=== PATIENT | female | born 1990 | race Caucasian/White ===

== ENCOUNTER → 2017-01-30 | Outpatient (CLI) | payer OTHER ==
[2016-06-21 12:42] VITALS: BP 105/73
[~2017-01-30] MED LIST: CIPR500T94 PO; HYDR-971 PO; PREN1TAB46 PO
--- NOTE | 2017-01-30 15:31 | RAD ---
Cervical spine, 3 views, 01/30/2017: History: Neck pain, left arm pain No fracture or dislocation is identified. There is straightening of the normal cervical lordosis. The intervertebral disc spaces are well-maintained. The prevertebral soft tissues are unremarkable. IMPRESSION: 1. Straightening of the normal cervical lordosis. 2. No acute bony abnormality is detected.
== END | disposition home or self-care (01) ==
LOC: DXRADRC 15:04
PROVIDERS: ATTEND Nurse Practitioner Family
DX: M40.40 Postural lordosis, site unspecified (principal); M79.602 Pain in left arm
CPT/HCPCS: 72040

== ENCOUNTER 2018-09-16 00:54 | Emergency (ER) | payer OTHER ==
[~2018-09-16] VITALS: Ht 170.2 cm; Wt 63.5 kg
[~2018-09-16 00:54] MED LIST changes: +HYDR-3165 PO; -HYDR-971 PO
[2018-09-16 01:06] VITALS: BP 125/50
[2018-09-16] MEDS ORDERED: CLIN300C8 PO (01:21)
[2018-09-16] MEDS ORDERED: CEPH-264 PO (01:21)
[2018-09-16] MEDS ORDERED: BACI3.5O7 OP (01:21)
[2018-09-16] MEDS ORDERED: ERYTHROMYCIN 0.5% OPHTH OINTMENT 1GM TUBE. OD ONE (01:30)
[2018-09-16] MEDS ORDERED: CLINDAMYCIN HCL 150 MG CAPSULE PO ONE (01:30)
--- NOTE | 2018-09-16 01:35 | ED.ADGEN ---
Past History Past Medical History: No Pertinent History Past Surgical History: No Surgical History Smoking: Non-smoker Alcohol Use: Occasionally Drug Use: None Adult General Chief Complaint Chief Complaint ".. I woke up with this painful eye lid.." HPI HPI Patient is a 28 year old male who presents with above hx and complaints. Patient has had previous episodes of staph cellulitis. Patient has a small area of erythema and swelling on nasal canthus area of right eye. No true periorbital cellulitis. No adenopathy. Patient denies any vision changes. Patient denies any specific ill contacts or travel. Patient is currently . Patient states her last tetanus was 6 years ago. Patient denies any immunosuppression. Review of Systems Review of Systems Constitutional: Denies fever or chills [] Eyes: Denies change in visual acuity, redness, or eye pain []complains of right eye lid stye HENT: Denies nasal congestion or sore throat [] Respiratory: Denies cough or shortness of breath [] Cardiovascular: No additional information not addressed in HPI [] GI: Denies abdominal pain, nausea, vomiting, bloody stools or diarrhea [] : Denies dysuria or hematuria [] Musculoskeletal: Denies back pain or joint pain [] Integument: Denies rash or skin lesions [] Neurologic: Denies headache, focal weakness or sensory changes [] Endocrine: Denies polyuria or polydipsia [] All other systems were reviewed and found to be within normal limits, except as documented in this note. Family History Family History Noncontributory Current Medications Current Medications Current Medications Medications (Trade) Dose Ordered Sig/[facility] Start Time Stop Time Status Last Admin Dose Admin Clindamycin HCl (Cleocin) 300 mg 1X ONCE 09/16/18 01:30 09/16/18 01:30 DC 09/16/18 01:24 300 MG Erythromycin (Romycin) 0.25 inch 1X ONCE 09/16/18 01:30 09/16/18 01:30 DC 09/16/18 01:23 0.25 INCH Allergies Allergies Allergies Coded Allergies Type Severity Reaction Last Updated Verified sulfamethoxazole Allergy Intermediate rash 12/18/13 Yes trimethoprim Allergy Intermediate rash 12/18/13 Yes Physical Exam Physical Exam Constitutional: Well developed, well nourished, mild distress, non-toxic appearance. [] HENT: Normocephalic, atraumatic, bilateral external ears normal, oropharynx moist, no oral exudates, nose normal. [] Eyes: PERRLA, EOMI, conjunctiva normal, no discharge. [] Mild right eye lid canthus nasal side cellulitis. Neck: Normal range of motion, no tenderness, supple, no stridor. [] Cardiovascular:Heart rate regular rhythm, no murmur [] Lungs & Thorax: Bilateral breath sounds clear to auscultation [] Abdomen: Bowel sounds normal, soft, no tenderness, no masses, no pulsatile masses. [] Skin: Warm, dry, no erythema, no rash. [] Back: No tenderness, no CVA tenderness. [] Extremities: No tenderness, no cyanosis, no clubbing, ROM intact, no edema. [] Neurologic: Alert and oriented X 3, normal motor function, normal sensory function, no focal deficits noted. [] Psychologic: Affect anxious, judgement normal, mood normal. [] Current Patient Data Vital Signs Vital Signs Date Time Temp Pulse Resp B/P (MAP) Pulse Ox O2 Delivery O2 Flow Rate FiO2 09/16/18 01:06 98.8 79 18 98 Room Air EKG EKG [] Radiology/Procedures Radiology/Procedures [] Course & Med Decision Making Course & Med Decision Making Pertinent Labs and Imaging studies reviewed. (See chart for details) Prior very small amount of erythromycin ointment to right eye 4 times a day. Use moist heat packs frequent throughout the day. Take Keflex 500x3 times a day. May need to advance to clindamycin 303 times a day. If no improvement must see ophthalmology. Follow-up primary care. Return if any concerns. [] Final Impression Final Impression 1. Rt.Eyelid stye[]-cellulitis Dragon Disclaimer Dragon Disclaimer This electronic medical record was generated, in whole or in part, using a voice recognition dictation system. Dragon Disclaimer This chart was dictated in whole or in part using Voice Recognition software in a busy, high-work load, and often noisy Emergency Department environment. It may contain unintended and wholly unrecognized errors or omissions. Discharge Summary Visit Information Final Diagnosis Problems Medical Problems: (1) Cellulitis Status: Acute (2) Sty Status: Acute Brief Hospital Course Allergies Allergies Coded Allergies Type Severity Reaction Last Updated Verified sulfamethoxazole Allergy Intermediate rash 12/18/13 Yes trimethoprim Allergy Intermediate rash 12/18/13 Yes Vital Signs Vital Signs Date Time Temp Pulse Resp B/P (MAP) Pulse Ox O2 Delivery O2 Flow Rate FiO2 09/16/18 01:06 98.8 79 18 98 Room Air Brief Hospital Course Ms. John is a 28 old female who presented with Rt eye lid style. Discharge Information Condition at Discharge: Improved Disposition/Orders: D/C to Home Dischare Medications Current Medications Erythromycin (Romycin) 0.25 inch 1X ONCE OD Last administered on 09/16/18at 01: 23; Admin Dose 0.25 INCH; Start 09/16/18 at 01:30; Stop 09/16/18 at 01:30; Status DC Clindamycin HCl (Cleocin) 300 mg 1X ONCE PO Last administered on 09/16/18at 01: 24; Admin Dose 300 MG; Start 09/16/18 at 01:30; Stop 09/16/18 at 01:30; Status DC Active Scripts Active Polycin Eye Ointment (Bacitracin/Polymyxin B Sulfate) 3.5 Gm Oint...g. 3.5 Gm OP QID 10 Days Clindamycin Hcl 300 Mg Capsule 300 Mg PO TID 10 Days Keflex (Cephalexin) 500 Mg Capsule 500 Mg PO TID 10 Days Franklin 5-325 Tablet (Hydrocodone Bit/Acetaminophen) 1 Each Tablet 1-2 Tab PO Q4- 6HRS Cipro (Ciprofloxacin Hcl) 500 Mg Tablet 1 Tab PO BID Reported One Tablet ( Vit #108/Iron/Fa) 1 Each Tablet 1 Each PO DAILY CHESTER MELENDEZ MD Sep 16, 2018 01:35
== END 2018-09-16 01:27 | disposition home or self-care (01) ==
LOC: ER 00:54
DX: O26.899 Other specified pregnancy related conditions, unspecified trimester (principal); H00.033 Abscess of eyelid right eye, unspecified eyelid; H00.013 Hordeolum externum right eye, unspecified eyelid; Z3A.00 Weeks of gestation of pregnancy not specified; Z88.1 Allergy status to other antibiotic agents; Z88.2 Allergy status to sulfonamides
CPT/HCPCS: 99283

== ENCOUNTER 2019-04-28 20:37 | Emergency (ER) | payer OTHER ==
[~2019-04-28] VITALS: Ht 170.2 cm; Wt 62.1 kg
[~2019-04-28 20:37] MED LIST changes: +BACI3.5O7 OP; +CEPH-264 PO; +CLIN300C8 PO; -PREN1TAB46 PO; +PRENATAL ONE T1 EACH PO
[2019-04-28] MEDS ORDERED: IV DEXTROSE 5% - 0.9 % NACL 1,000 ML IV ONE (21:00)
[2019-04-28 21:13] LABS: BASO # 0.1 x10^3/uL (0.0-0.2); BASO % 1 % (0-3); EOS % 0 % (0-3); HEMATOCRIT 39.8 % (36.0-47.0); HEMOGLOBIN 13.5 g/dL (12.0-15.5); LYMPH % 22 % (24-48); MEAN CORPUSCULAR HEMOGLOBIN 31 pg (25-35); MEAN CORPUSCULAR HGB CONC 34 g/dL (31-37); MEAN CORPUSCULAR VOLUME 90 fL (79-100); MONO # 0.6 x10^3/uL (0.0-1.1); MONO % 7 % (0-9); NEUT # 6.2 x10^3uL (1.8-7.7); NEUT % 70 % (31-73); PLATELET COUNT 348 x10^3/uL (140-400); RED BLOOD COUNT 4.42 x10^6/uL (3.50-5.40); RED CELL DISTRIBUTION WIDTH 12.4 % (11.5-14.5); WHITE BLOOD COUNT 8.9 x10^3/uL (4.0-11.0)
--- NOTE | 2019-04-28 21:17 | PHYS DOC ---
Past History Past Medical History: No Pertinent History Past Surgical History: No Surgical History Smoking: Non-smoker Alcohol Use: None Drug Use: None Adult General Chief Complaint Chief Complaint: VOMITING IN HPI HPI Patient is a 28-year-old female with nausea and vomiting. This is been ongoing since finding out that she was . She is approximately 10 weeks . This happened with her previous pregnancies as well. She was seen by her POST SPLITTER during this past week, had an IV inserted and was given IV fluids and antiemetics. She took the IV catheter out 2 days ago due to discomfort. She denies any blood in the emesis. She reports decreased bowel movements but is st ill passing flatus. No previous surgical history. Any oral intake triggers nausea and vomiting. She has not started vitamins this .[] Review of Systems Review of Systems Constitutional: Denies fever or chills [] Eyes: Denies change in visual acuity, redness, or eye pain [] HENT: Denies nasal congestion or sore throat [] Respiratory: Denies cough or shortness of breath [] Cardiovascular: No chest pain or palpitations[] GI: See history of present illness[] : Denies dysuria or hematuria [] Musculoskeletal: Denies back pain or joint pain [] Integument: Denies rash or skin lesions [] Neurologic: Denies headache, focal weakness or sensory changes [] Endocrine: Denies polyuria or polydipsia [] All other systems were reviewed and found to be within normal limits, except as documented in this note. Current Medications Current Medications Current Medications Medications (Trade) Dose Ordered Sig/Natalie Start Time Stop Time Status Last Admin Dose Admin Dextrose/Sodium Chloride 1,000 ml @ 0 mls/hr 1X ONCE 04/28/19 21:00 04/28/19 21:01 UNV Ondansetron HCl (Zofran) 8 mg 1X ONCE 04/28/19 21:00 04/28/19 21:01 UNV Allergies Allergies Allergies Coded Allergies Type Severity Reaction Last Updated Verified sulfamethoxazole Allergy Intermediate rash 12/18/13 Yes trimethoprim Allergy Intermediate rash 12/18/13 Yes Physical Exam Physical Exam Constitutional: Well developed, well nourished, no acute distress, non-toxic appearance. [] HENT: Normocephalic, atraumatic, bilateral external ears normal, oropharynx moist, no oral exudates, nose normal. [] Eyes: PERRLA, EOMI, conjunctiva normal, no discharge. [] Neck: Normal range of motion, no tenderness, supple, no stridor. [] Cardiovascular:Heart rate is tachycardic with a regular rhythm, no murmur [] Lungs & Thorax: Bilateral breath sounds clear to auscultation [] Abdomen: Bowel sounds normal, soft, no tenderness, no masses, no pulsatile masses. [] Skin: Warm, dry, no erythema, no rash. [] Back: No tenderness, no CVA tenderness. [] Extremities: No tenderness, no cyanosis, no clubbing, ROM intact, no edema. [] Neurologic: Alert and oriented X 3, normal motor function, normal sensory function, no focal deficits noted. [] Psychologic: Affect normal, judgement normal, mood normal. [] Current Patient Data Vital Signs Vital Signs Date Time Temp Pulse Resp B/P (MAP) Pulse Ox O2 Delivery O2 Flow Rate FiO2 04/28/19 20:39 99.2 104 20 Room Air EKG EKG [] Radiology/Procedures Radiology/Procedures Bedside ultrasound was performed that showed heart motion in the 160s to 180s.[] Course & Med Decision Making Course & Med Decision Making Pertinent Labs and Imaging studies reviewed. (See chart for details) ED course: Patient arrived, was placed in bed, and tolerated exam well. She was given IV fluids and antiemetics. After this she was able to tolerate oral intake. Heart rate improved from over 100. Findings were discussed with the patient who voiced understanding. All questions were answered. She was discharged in improved condition. Medical decision making: There is no evidence of a significant electrolyte abnormality. Patient's ketones were present, this was addressed with IV D5 normal saline along with oral intake. She was given multivitamin since Derek's original case series included a patient with hyperemesis gravidarum. No evidence of a urinary tract infection. No evidence of an obstruction. No evidence of oral intake intolerance.[] Dragon Disclaimer Dragon Disclaimer This electronic medical record was generated, in whole or in part, using a voice recognition dictation system. Departure Departure: Impression: Primary Impression: Nausea and vomiting Additional Impression: Disposition: HOME, SELF-CARE Condition: IMPROVED Referrals: BYRON LENTZ APRN (PCP) Follow-up in 2 days Patient Instructions: Diet - Hyperemesis Gravidarum, Hyperemesis Gravidarum Additional Instructions: Follow-up with your regular doctor in 2 days.Drink plenty of fluids, frequent small sips. No fatty foods, no milk, and no pepper for the next 48 hours. For the next 48 hours eat a diet rich in carbohydrates with foods such as bananas, rice, applesauce, and toast. Since the medicines you have been prescribed do not seem to be working for you for her nausea, try the following strategies either individually, or together the next time you feel nauseated. Sniff the scent of rubbing alcohol from an alcohol packet try drinking 1/4 tsp of don dissolved in water or apple juice allow a tsp of sugar to dissolve under your tongue. Return to the ER if unable to tolerate liquids, blood in your stool or emesis, or any other concerns. Problem Qualifiers Primary Impression: Nausea and vomiting Vomiting type: unspecified Vomiting Intractability: non-intractable Qualified Codes: R11.2 - Nausea with vomiting, unspecified Additional Impression: Weeks of gestation: 10 weeks Qualified Codes: Z3A.10 - 10 weeks gestation of STEVIE EVANS DO Apr 28, 2019 21:17
[2019-04-28 21:18] LABS: BACTERIA,URINE FEW /HPF (0-FEW); BILIRUBIN,URINE NEG (NEG); CLARITY,URINE HAZY; COLOR,URINE YELLOW; GLUCOSE,URINE NEG (NEG); NITRITE,URINE NEG (NEG); SQUAMOUS EPITHELIAL CELL,UR OCC /LPF; UROBILINOGEN,URINE 0.2 mg/dL (0.2 mg/dL)
[2019-04-28 21:25] LABS: ALBUMIN 4.2 g/dL (3.4-5.0); ALBUMIN/GLOBULIN RATIO 1.3 (1.0-1.7); CALCIUM 9.4 mg/dL (8.5-10.1); CREATININE 0.6 mg/dL (0.6-1.0); POTASSIUM 3.4 mmol/L (3.5-5.1); TOTAL BILIRUBIN 0.6 mg/dL (0.2-1.0); TOTAL PROTEIN 7.5 g/dL (6.4-8.2)
[2019-04-28] MEDS ORDERED: ONDANSETRON PF 4 MG/2 ML VIAL. IV ONE (21:30)
[2019-04-28] MEDS ORDERED: FOLIC ACID 5 MG/ML SYRINGE for ER IV ONE (21:38)
[2019-04-28] MEDS ORDERED: THIAMINE 200 MG/2 ML VIAL. IV ONE (21:38)
[2019-04-28] MEDS ORDERED: MVI, ADULT NO.4 WITH VIT K 10 ML, FOLIC ACID SYRINGE for ER 1 MG, THIAMINE INJ 100 MG i... IV ONE ×4 (22:00)
[2019-04-28 23:26] VITALS: BP 104/67
== END 2019-04-28 23:29 | disposition home or self-care (01) ==
LOC: ER 20:37
DX: O21.9 Vomiting of pregnancy, unspecified (principal); Z3A.10 10 weeks gestation of pregnancy; Z88.1 Allergy status to other antibiotic agents; Z88.2 Allergy status to sulfonamides
CPT/HCPCS: 36415; 80053; 81001; 83735; 85025; 96361; 96365; 96375; 99285; J2405; J7042; J7120; 99284-25

== ENCOUNTER → 2019-07-01 | Outpatient (CLI) | payer OTHER ==
--- NOTE | 2019-07-01 12:31 | RAD ---
EXAM: Obstetrics sonogram. HISTORY: Pelvic pain. TECHNIQUE: Sonographic imaging of a gravid uterus was performed. COMPARISON: None. FINDINGS: There is a single intrauterine fetus in cephalic presentation with a heart rate of 150 bpm. The cervix is closed and measures 6.7 cm in length. There is a four-chamber heart. The stomach and brain are unremarkable. The remainder of the anatomy is not formally assessed. There is a posterior placenta without evidence of placenta previa. The anatomic fluid index is normal at 13.7 cm. The biparietal diameter is 4.3 cm, corresponding with 19 weeks and 1 day. The head circumference is 16.2 cm, corresponding with 19 weeks and 0 days. The abdominal circumference is 14.1 cm, corresponding with 19 weeks and 3 days. The femoral length is 2.7 cm, corresponding with 18 weeks and 2 days. The estimated gestational age patient combined ultrasound measurements is 19 weeks and 0 days. The estimated weight is 266 g. The estimated due date is 11/25/2019. IMPRESSION: 1. Single intrauterine fetus with an estimated gestational age based on ultrasound measurements of 19 weeks and 0 days and normal heart rate of 150 bpm. 2. No acute finding. Note is made that a formal anatomy survey was not performed at the time of this stat examination. Electronically signed by: Velvet Pizano MD (07/01/2019 12:28 PM) [place] [id number]
== END | disposition home or self-care (01) ==
LOC: US 10:47
PROVIDERS: ATTEND Registered Nurse
DX: Z33.1 Pregnant state, incidental (principal); R35.0 Frequency of micturition; R10.2 Pelvic and perineal pain; Z3A.19 19 weeks gestation of pregnancy
CPT/HCPCS: 76805

== ENCOUNTER → 2021-01-15 | Outpatient (CLI) | payer OTHER ==
[~2021-01-15] MED LIST changes: -CLIN300C8 PO; +CLIN300C9 PO
--- NOTE | 2021-01-15 10:03 | RAD ---
EXAM: Pelvic sonogram; renal sonogram. HISTORY: Left lower quadrant pain. TECHNIQUE: Sonographic imaging of the pelvis and kidneys was performed. COMPARISON: None. FINDINGS: The uterus measures 9.7 x 5.6 x 4.4 cm. The endometrial stripe measures 5 mm in thickness. The ovaries are normal in size and demonstrate normal blood flow. There are small bilateral ovarian a ntral follicles. There is no pelvic free fluid. The kidneys are normal in size. No solid or cystic renal lesion is seen. There is no hydronephrosis. The aorta is noted in caliber. The inferior vena cava is patent. The ureteral jets are both seen. The prevoid bladder volume is 170 cc. There is incidental mild spinal megaly measuring 13.4 cm. IMPRESSION: 1. No acute pelvic or renal finding. 2. Incidental mild splenomegaly. Electronically signed by: Velvet Pizano MD (01/15/2021 10:00 AM) [id number]
== END ==
LOC: US 09:01
PROVIDERS: ATTEND Obstetrics & Gynecology
DX: R10.32 Left lower quadrant pain (principal); R10.9 Unspecified abdominal pain
CPT/HCPCS: 76770; 76830; 76856

== ENCOUNTER → 2021-02-04 | Outpatient (CLI) | payer OTHER ==
[~2021-02-04] MED LIST changes: +IOHEXOL 240 MG/ML 50ML VIAL. ONE; +IOHEXOL 240 MG/ML 50ML VIAL. PO ONE; +IOHEXOL 300 MG/ML 75 ML VIAL. IV ONE
--- NOTE | 2021-02-04 09:19 | RAD ---
EXAM: Abdomen and pelvis CT with intravenous contrast. HISTORY: Diffuse pain. TECHNIQUE: Computed tomographic images of the abdomen and pelvis were obtained following the administ ration of intravenous contrast. Multiplanar reformatting was performed. *One or more of the following individualized dose reduction techniques were utilized for this examina tion: 1. Automated exposure control. 2. Adjustment of the mA and/or kV according to patient size. 3. Use of iterative reconstruction technique. COMPARISON: None. FINDINGS: Evaluation of the lower thorax is unremarkable. There is a tiny cyst within the superior le ft hepatic lobe. No suspicious hepatic lesion is seen. The gallbladder, pancreas, stomach, spleen, ad renal glands and kidneys are unremarkable. There is no appendicitis. There is no bowel obstruction. T here is no abnormal bowel wall thickening. The bladder is unremarkable. There is a 1.3 cm peripheral enhancing left ovarian follicle/follicular cyst. This likely an involuting. No uterine mass is seen. The aorta is normal in caliber. There is no lymphadenopathy. There is no suspicious osseous lesion. IMPRESSION: 1. No acute abdominal finding. 2. 1.3 cm physiologic involuting left ovarian follicle/follicular cyst. 3. Tiny hepatic cyst. Electronically signed by: Velvet Pizano MD (02/04/2021 9:17 AM) [id number]
== END ==
LOC: CT 08:05
PROVIDERS: ATTEND Internal Medicine Gastroenterology
DX: K76.89 Other specified diseases of liver (principal); N83.02 Follicular cyst of left ovary
CPT/HCPCS: 74177; Q9967

== ENCOUNTER 2021-09-03 08:25 | Emergency (ER) | payer OTHER ==
[~2021-09-03] VITALS: Ht 170.2 cm; Wt 63.6 kg
[~2021-09-03 08:25] MED LIST changes: +CLIN-95 PO; -CLIN300C9 PO; -IOHEXOL 240 MG/ML 50ML VIAL. ONE; -IOHEXOL 240 MG/ML 50ML VIAL. PO ONE; -IOHEXOL 300 MG/ML 75 ML VIAL. IV ONE
[2021-09-03 08:31] VITALS: BP 122/74
--- NOTE | 2021-09-03 08:45 | PHYS DOC ---
Past History Past Medical History: No Pertinent History Past Surgical History: No Surgical History Smoking: Non-smoker Alcohol Use: None Drug Use: None Adult General Chief Complaint Chief Complaint: SORE THROAT HPI HPI Patient is a 31-year-old female presenting with son for URI symptoms. 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 She reports last known interaction with any of these individuals was 3 days ago. She states that 5 days ago she started developing upper respiratory symptoms that include nasal congestion, rhinorrhea and a dry nonproductive cough prompting her to come in today for evaluation. She is unvaccinated against COVID-19 Review of Systems Review of Systems Fourteen body systems of review of systems have been reviewed. See HPI for pertinent positives and negative responses, other valdez all other systems are negative, non-pertinent or non-contributory Allergies Allergies Allergies Coded Allergies Type Severity Reaction Last Updated Verified sulfamethoxazole Allergy Intermediate rash 12/18/13 Yes trimethoprim Allergy Intermediate rash 12/18/13 Yes Physical Exam Physical Exam General: Appears well, non toxic, and comfortable Skin: Warm, dry. Normal for ethnicity. HEENT: Atraumatic. PERRLA. Rhinorrhea and congestion. Nasal turbinates boggy b/l. Moist mucous membranes. Uvula midline. Maintaining secretions. No phonation changes. Neck: Trachea midline. Normal ROM. No stridor. Respiratory: Normal WOB. CTAB w/o w/r/r. No tachypnea. Cardiovascular: Regular rate and rhythm. Normal peripheral perfusion. Abdomen: Soft. Non tender. No distension. Back: Normal ROM. Musculoskeletal: No swelling or deformity. Neuro: Alert and oriented x 4. MAEE. Lymph: No cervical LAD. Psych: Normal affect and mood. Current Patient Data Vital Signs Vital Signs Date Time Temp Pulse Resp B/P (MAP) Pulse Ox O2 Delivery O2 Flow Rate FiO2 09/03/21 08:31 98.3 95 18 122/74 (90) 99 Room Air Vital Signs Date Time Temp Pulse Resp B/P (MAP) Pulse Ox O2 Delivery O2 Flow Rate FiO2 09/03/21 08:31 98.3 95 18 122/74 (90) 99 Room Air EKG EKG [] Radiology/Procedures Radiology/Procedures [] Heart Score C/O Chest Pain: No Risk Factors: Risk Factors: DM, Current or recent (<one month) smoker, HTN, HLP, family history of CAD, obesity. Risk Scores: Risk Factors: DM, Current or recent (<one month) smoker, HTN, HLP, family history of CAD, obesity. Course & Med Decision Making Course & Med Decision Making ABCs unremarkable HPI physical exam consistent with likely self-limiting viral syndrome, cannot exclude COVID-19 an individual who is unvaccinated with positive contact. PCR test pending with supportive care and self quarantine precautions discussed Warren Disclaimer Dragon Disclaimer This electronic medical record was generated, in whole or in part, using a voice recognition dictation system. Departure Departure: Impression: Primary Impression: Viral syndrome Additional Impression: Person under investigation for COVID-19 Disposition: HOME / SELF CARE / HOMELESS Condition: STABLE Referrals: ALEXANDRE BEE MD (PCP) Additional Instructions: You were seen for fatigue, runny nose, body aches, and possible infection with COVID-19. Your physical exam was reassuring. We tested you for COVID-19 but this test does not come back for 1 to 2 days. In the meantime you need to quarantine yourself at home away from all other individuals, especially those who are elderly or have any other chronic health issues or an immunocompromised status. You should return to the ED if you develop worsening cough, shortness of breath, chest pain, or any other new or concerning symptoms. Alternate Tylenol and ibuprofen as needed for body aches and pain. If your test does come back positive you need to quarantine yourself for 10 days until symptom-free. You should make sure to drink plenty of fluids and get plenty of rest. Problem Qualifiers JOCE CENTENO DO Sep 03, 2021 08:45
[2021-09-03 09:09] LABS: INFLUENZA A PATIENT NEGATIVE (NEGATIVE); INFLUENZA B PATIENT NEGATIVE (NEGATIVE)
== END 2021-09-03 09:30 | disposition home or self-care (01) ==
LOC: ER 08:35
DX: U07.1 COVID-19 (principal); B34.9 Viral infection, unspecified; Z88.2 Allergy status to sulfonamides; Z88.1 Allergy status to other antibiotic agents
CPT/HCPCS: 87804; 99283; C9803; U0003